=== PATIENT | female | born 1960 | race Caucasian/White ===

== ENCOUNTER 2018-10-15 11:27 | Emergency (ER) | payer OTHER ==
--- NOTE | 2018-10-15 11:48 | EDPHY ---
H & P Time Seen by Provider: 10/15/18 11:43 HPI/ROS: Chief complaint. Nausea vomiting diarrhea HPI. Patient is a 58-year-old female with nausea vomiting and diarrhea that began yesterday. The patient is visiting from [place]. She arrived 2 days ago and was feeling well. Last night she began have crampy low abdominal pain which has resolved now. She has had vomiting and diarrhea as well as dry heaves. Dizzy on standing. No known bad food or exposure to Infectious Disease. No chest discomfort or trouble breathing. No fever. No urinary symptoms other than decreased urination ROS 10 systems were reviewed and negative with the exception of the elements mentioned in the history of present illness Past Medical/Surgical History: Hypothyroid Social History: , nonsmoker, no alcohol Smoking Status: Never smoked Physical Exam: General Appearance: Alert pleasant well-developed female mild distress vital signs significant for heart rate 112 Eyes: Pupils equal and round no pallor or injection. ENT, Mouth: Mucous membranes are moist. Respiratory: There are no retractions, lungs are clear to auscultation. Cardiovascular: Regular rate and rhythm. Tachycardia Gastrointestinal: Abdomen is soft and nontender. No masses. Normal bowel sounds Neurological: Awake and alert, sensory and motor exams grossly normal. Skin: Warm and dry, no rashes. Musculoskeletal: Neck is supple nontender. Extremities symmetrical, full range of motion. Psychiatric: Patient is oriented X 3, there is no agitation. Constitutional: Initial Vital Signs Temperature (C) 36.7 C 10/15/18 11:36 Heart Rate 112 H 10/15/18 11:36 Respiratory Rate 18 10/15/18 11:36 Blood Pressure 140/91 H 10/15/18 11:36 O2 Sat (%) 98 10/15/18 11:36 O2 Delivery Mode Room Air Allergies/Adverse Reactions: meperidine [From Demerol] Allergy (Verified 10/15/18 11:36) Penicillins Allergy (Verified 10/15/18 11:36) Home Medications: Medication Instructions Recorded Levothyroxine 10/15/18 Meclizine HCl [Meclizine HCl 25 mg 25 mg PO TID PRN #10 tab 10/15/18 (RX,OTC)] Ondansetron Odt [Zofran Odt] 4 mg PO Q4PRN PRN #6 tab 10/15/18 Medical Decision Making Procedures: IV normal saline with initial target 2 L. Zofran for nausea ED Course/Re-evaluation: Re-evaluation 1:10 p.m.. Patient is much improved. No nausea. She is taking oral ice chips. She has been up to the bathroom to urinate after 2 L of fluid. She tells me she still has a little bit of dizziness when she turns her head. She also tells me that she has had previous vertigo. She will be given a meclizine orally Re-evaluation again at 1:35 p.m.. Patient is stable. We reviewed laboratory evaluation, treatment plan including criteria for return importance of follow- up and further evaluation. She expresses understanding and agreement Differential Diagnosis: This appears to be a gastroenteritis with dehydration. She does have some element of vertigo which she tells me she has had before. No significant electrolyte abnormality. - Data Points Laboratory Results: Laboratory Results 10/15/18 11:47 10/15/18 11:47 10/15/18 10/15/18 11:47 11:47 WBC 10.40 10^3/uL H 10^3/uL (3.80-9.50) RBC 4.45 10^6/uL 10^6/uL (4.18-5.33) Hgb 13.5 g/dL g/dL (12.6-16.3) Hct 42.6 % % (38.0-47.0) MCV 95.7 fL fL (81.5-99.8) MCH 30.3 pg pg (27.9-34.1) MCHC 31.7 g/dL L g/dL (32.4-36.7) RDW 12.7 % % (11.5-15.2) Plt Count 352 10^3/uL 10^3/uL (150-400) MPV 9.4 fL fL (8.7-11.7) Neut % (Auto) 83.8 % H % (39.3-74.2) Lymph % (Auto) 10.4 % L % (15.0-45.0) [place] % (Auto) 4.4 % L % (4.5-13.0) Eos % (Auto) 0.4 % L % (0.6-7.6) Baso % (Auto) 0.5 % % (0.3-1.7) Nucleat RBC Rel Count 0.0 % % (0.0-0.2) Absolute Neuts (auto) 8.72 10^3/uL H 10^3/uL (1.70-6.50) Absolute Lymphs (auto) 1.08 10^3/uL 10^3/uL (1.00-3.00) Absolute Monos (auto) 0.46 10^3/uL 10^3/uL (0.30-0.80) Absolute Eos (auto) 0.04 10^3/uL 10^3/uL (0.03-0.40) Absolute Basos (auto) 0.05 10^3/uL 10^3/uL (0.02-0.10) Absolute Nucleated RBC 0.00 10^3/uL 10^3/uL (0-0.01) Immature Gran % 0.5 % % (0.0-1.1) Immature Gran # 0.05 10^3/uL 10^3/uL (0.00-0.10) Sodium 141 mEq/L mEq/L (135-145) Potassium 3.4 mEq/L L mEq/L (3.5-5.2) Chloride 105 mEq/L mEq/L (97-110) Carbon Dioxide 24 mEq/l mEq/l (22-31) Anion Gap 12 mEq/L mEq/L (6-14) BUN 14 mg/dL mg/dL (7-23) Creatinine 0.6 mg/dL mg/dL (0.6-1.0) Estimated GFR > 60 Glucose 113 mg/dL H mg/dL (70-100) Calcium 9.4 mg/dL mg/dL (8.5-10.4) Lipase 151 IU/L IU/L (23-300) Medications Given: Discontinued Medications Sodium Chloride (Ns) 1,000 mls @ 0 mls/hr IV ONCE ONE; Wide Open PRN Reason: Protocol Stop: 10/15/18 12:00 Last Admin: 10/15/18 12:00 Dose: 1,000 mls Sodium Chloride (Ns) 1,000 mls @ 0 mls/hr IV EDNOW ONE; Wide Open PRN Reason: Protocol Stop: 10/15/18 12:04 Last Admin: 10/15/18 12:06 Dose: 1,000 mls Meclizine HCl (Meclizine Hcl) 25 mg PO EDNOW ONE Stop: 10/15/18 13:17 Last Admin: 10/15/18 13:23 Dose: 25 mg Ondansetron HCl (Zofran) 4 mg IVP EDNOW ONE Stop: 10/15/18 12:04 Last Admin: 10/15/18 12:14 Dose: 4 mg Departure - Departure Disposition: Home, Routine, Self-Care Clinical Impression: Acute gastroenteritis, Dehydration, Vertigo Condition: Good Instructions: Dehydration (ED), Vertigo (ED) Additional Instructions: Frequent, small sips fluids well nauseated. Gradual diet advancement. For nausea and vomiting use Zofran to help control nausea and vomiting. Meclizine as needed for dizziness Return for worsening symptoms. Follow up with her regular physician when you return home to [place] Referrals: PRINCE ROCHA [Other] - As per Instructions Prescriptions: Meclizine HCl [Meclizine HCl 25 mg (RX,OTC)] 25 mg PO TID PRN #10 tab PRN Reason: Dizziness Ondansetron Odt [Zofran Odt] 4 mg PO Q4PRN PRN #6 tab PRN Reason: Nausea/Vomiting, Use 1st
[2018-10-15] MEDS ORDERED: NS 1,000 ML IV ONE ×2 (11:59→12:03)
[2018-10-15] MEDS ORDERED: ONDANSETRON 4 MG/2 ML VIAL IVP ONE (12:03)
[2018-10-15 12:14] LABS: PLATELET COUNT 352 10^3/uL (150-400)
[2018-10-15] MEDS ORDERED: MECLIZINE HCL 25 MG TAB PO ONE (13:16)
[2018-10-15 13:58] VITALS: BP 114/73
== END 2018-10-15 13:56 | disposition home or self-care (01) ==
DX: K52.9 Noninfective gastroenteritis and colitis, unspecified (principal); E86.0 Dehydration; R42 Dizziness and giddiness
CPT/HCPCS: 96374; J2405